=== PATIENT | female | born 1955 | race Caucasian/White ===

== ENCOUNTER 2025-04-19 10:17 | Emergency (ER) | payer SELFPAY ==
[~2025-04-19] VITALS: Ht 162.6 cm; Wt 75.3 kg
[2025-04-19] MEDS ORDERED: CYCL5TAB PO (11:49)
[2025-04-19] MEDS ORDERED: LIDO30AD10 TP (11:49)
[2025-04-19] MEDS ORDERED: IBUP-1955 PO (11:49)
[2025-04-19 12:00] VITALS: BP 130/101; TEMP 98.3; O2SAT 94
== END 2025-04-19 12:01 | disposition home or self-care (01) ==
LOC: ER 10:24
DX: M54.50 Low back pain, unspecified (principal); I10 Essential (primary) hypertension; K21.9 Gastro-esophageal reflux disease without esophagitis; V49.59XA Passenger injured in collision with other motor vehicles in traffic accident, initial encounter; Y93.89 Activity, other specified; Y92.415 Exit ramp or entrance ramp of street or highway as the place of occurrence of the external cause; Y99.8 Other external cause status